=== PATIENT | female | born 1960 | race Caucasian/White ===

== ENCOUNTER 2016-09-06 18:26 | Emergency (ER) | payer BC | END 2016-09-06 19:38 | disposition home or self-care (01) | LOC: CFTX 18:26 | DX: L03.011 Cellulitis of right finger (principal); Z88.0 Allergy status to penicillin; Z88.5 Allergy status to narcotic agent | CPT/HCPCS: 10060; 90471; 90715; 99283 ==

== ENCOUNTER → 2016-12-11 | Outpatient (CLI) | payer BC ==
--- NOTE | ~2016-12-11 | CT137 ---
[facility] A Service [facility] RADIOLOGY TEXT RESULTS PATIENT: RENATA RAMIREZ LOCATION: [facility] : 58 UNIT #: [id number] AGE: [address]: Pam Mckeon MD SEX: F ORDER DR: [id number] [address] [address] [id number] O MR#: [id number] Acc #: [id number] NAME: RENATA RAMIREZ : 1960 SEX: F STUDY DATE/TIME: 12/11/2016 8:06 UNIT: [facility] ROOM: STUDY DESCRIPTION: CT Lung Screening annual Attending Physician: Pam Mckeon M.D. Referring Physician: Pam Mckeon M.D. Ordering Physician: Pam Mckeon M.D. Primary Care Physician: Pam Mckeon M.D. MEDICAL IMAGING REPORT This report is preliminary unless electronic signature is present. EXAM CT chest without contrast, lung cancer screening. INDICATION 30 pack-year total smoking history. Former smoker quit [address] chest was performed without contrast using the low-dose lung cancer screening protocol. Coronal and sagittal reformatted images were obtained. This CT exam was performed with one or more of the following radiation dose reduction techniques: automatic exposure control, adjustment of mA and/or kV according to patient size, and iterative reconstruction. CT dose index 2.96 mGy. COMPARISON Comparison is made with 11/08/2015. FINDINGS Emphysema. Calcified granuloma in the left lower lobe. No suspicious pulmonary nodules. No suspicious lymphadenopathy. No pleural effusion. Limited imaging in the upper abdomen is unremarkable. Bone windows are unremarkable. IMPRESSION No suspicious pulmonary nodule. ACR Lung-RADS category 1. Followup annual low-dose lung cancer screening chest CT in 1 year. Dictated by... [facility] A Service [facility] RADIOLOGY TEXT RESULTS PATIENT: RENATA RAMIREZ LOCATION: [facility] : 58 UNIT #: [id number] AGE: [address]: Pam Mckeon MD SEX: F ORDER DR: Mahesh Pérez M.D. THIS IS AN ELECTRONICALLY VERIFIED REPORT Mahesh Pérez M.D. at 12/12/2016 7:28 AM KAUR/prabhakar TD: 12/11/2016 14:29 JOB #: [id number] MEDICAL IMAGING REPORT Page 1 of 1
== END | disposition home or self-care (01) ==
LOC: SCT 07:51
DX: Z87.891 Personal history of nicotine dependence (principal)
CPT/HCPCS: G0297

== ENCOUNTER → 2017-01-04 | Outpatient (CLI) | payer BC ==
--- NOTE | ~2017-01-04 | US37 ---
[facility] A Service of [facility] RADIOLOGY TEXT RESULTS PATIENT: RENATA RAMIREZ LOCATION: [facility] : 58 UNIT #: [id number] AGE: [address]: TAWANDA WATKINS MD SEX: F ORDER DR: [id number] [facility] [address] [place], [place] [address] [id number] O MR#: [id number] Acc #: [id number] NAME: RENATA RAMIREZ : 1960 SEX: F STUDY DATE/TIME: 01/04/2017 9:24 UNIT: [facility] ROOM: STUDY DESCRIPTION: US Carotid W/Doppler Bilateral Attending Physician: Tawanda Watkins M.D. Referring Physician: Tawanda Watkins M.D. Primary Care Physician: Pam Mckeon M.D. MEDICAL IMAGING REPORT This report is preliminary unless electronic signature is present EXAM Carotid Doppler bilateral 01/04/2017 HISTORY Dizziness and headaches for 1 year with blurred vision. Hyperlipidemia and elevated cholesterol levels. Evaluate for carotid stenosis. FINDINGS Amin-scale carotid artery images were obtained as well as Doppler waveform spectral analysis and color flow Doppler imaging. The examination was interpreted according to NASCET criteria. There is no hemodynamically significant stenosis in either carotid artery. Peak systolic velocity in the right and left internal carotid arteries is 101 cm/sec and 102 cm/sec respectively. Antegrade blood flow is seen in both vertebral arteries. IMPRESSION No hemodynamically significant stenosis in either carotid artery. Dictated by... Kishor Delarosa M.D. THIS IS AN ELECTRONICALLY VERIFIED REPORT Kishor Delarosa M.D. at 01/05/2017 10:17 AM ANUPAM/brittney TD: 01/04/2017 12:24 JOB #: [id number] MEDICAL IMAGING REPORT Page 1 of 1 COPY
== END | disposition home or self-care (01) ==
LOC: CNIV 08:47
DX: R00.2 Palpitations (principal); E78.5 Hyperlipidemia, unspecified; R42 Dizziness and giddiness; R55 Syncope and collapse; I51.89 Other ill-defined heart diseases
CPT/HCPCS: 93306; 93880